=== PATIENT | female | born 1985 | race Caucasian/White ===

== ENCOUNTER → 2023-11-19 09:55 | Outpatient (CLI) | payer OTHER, MEDICAID, SELFPAY ==
--- NOTE | 2023-11-19 09:58 | DI.US.S_ITS ---
PROCEDURE: US PELVIC COMPLETE INDICATIONS: DUB TECHNIQUE: Real-time scanning was performed of the pelvic organs, with image documentation. Additional endovaginal scanning was necessary due to incomplete visualization of the adnexal and endometrial structures by transabdominal scanning. COMPARISON: None. FINDINGS: Uterus: Uterus is anteverted and normal in size at 7.2 x 3.8 x 4.8 cm. The myometrium is homogeneous. The endometrium measures 10 mm combined thickness. Ovaries: The right ovary measures 2.4 x 4.7 x 2.6 cm, with a calculated ovarian volume of 15.2 cc. The left ovary measures 3.3 x 3.4 x 1.4 cm, with a calculated ovarian volume of 8.5 cc. Complex cyst is present on the right measuring 2.2 x 0.9 x 1.6 cm. Other: No pathologic free abdominal or pelvic fluid. IMPRESSION: Complex cyst within the right ovary suggestive of collapsing hemorrhagic cysts. We strive to produce accurate, complete, and clear reports of imaging services. To assist us in improving patient care, this report was composed using standard report templates and voice recognition software. Therefore, it may contain abnormal punctuation, insertions and/or omissions. Occasional wrong-word or sound-alike substitutions may occur. Though we review the report and make efforts to correct it, we do recommend that the report be read carefully in proper context to recognize any text inaccuracies. Dictated by: Medina Gil M.D. on 11/19/2023 at 13:35 Approved by: Medina Gil M.D. on 11/19/2023 at 13:39
== END ==
PROVIDERS: PCP Specialist; Referring Provider Naturopath; Visit Provider Naturopath
DX: N91.2 Amenorrhea, unspecified (principal); N83.291 Other ovarian cyst, right side
CPT/HCPCS: 76830; 76856; 93975

== ENCOUNTER → 2024-02-02 12:36 | Outpatient (CLI) | payer OTHER, MEDICAID, SELFPAY ==
--- NOTE | 2024-02-02 12:37 | DI.US.S_ITS ---
PROCEDURE: US PELVIC COMPLETE INDICATIONS: Unspecified ovarian cyst, unspecified side TECHNIQUE: Real-time scanning was performed of the pelvic organs, with image documentation. Additional endovaginal scanning was necessary due to incomplete visualization of the adnexal and endometrial structures by transabdominal scanning. COMPARISON: [facility], US, US PELVIC COMPLETE, 11/19/2023, 10:05. FINDINGS: Uterus: Uterus is anteverted and normal in size at 7.2 x 5.0 x 3.5 cm. The myometrium is homogeneous. The endometrium measures two mm combined thickness. No myometrial or endometrial mass. Normal vascularity. Ovaries: The right ovary measures 3.1 x 1.7 x 1.9 cm, with a calculated ovarian volume of 5.2 cc. The left ovary measures 2.9 x 2.6 x 1.4 cm, with a calculated ovarian volume of 5.5 cc. The ovaries have a normal sonographic appearance. There is a decompressing fluid collection adjacent to the right ovary. Less than 12 follicles can be seen in each ovary. No adnexal masses are seen. Other: No pathologic free abdominal or pelvic fluid. IMPRESSION: Normal pelvic ultrasound with resolving right ovarian cysts. We strive to produce accurate, complete, and clear reports of imaging services. To assist us in improving patient care, this report was composed using standard report templates and voice recognition software. Therefore, it may contain abnormal punctuation, insertions and/or omissions. Occasional wrong-word or sound-alike substitutions may occur. Though we review the report and make efforts to correct it, we do recommend that the report be read carefully in proper context to recognize any text inaccuracies. Dictated by: Cata Delacruz M.D. on 02/02/2024 at 16:03 Approved by: Cata Delacruz M.D. on 02/02/2024 at 16:06
== END ==
PROVIDERS: PCP Specialist; Referring Provider Naturopath; Visit Provider Naturopath
DX: N83.201 Unspecified ovarian cyst, right side (principal)
CPT/HCPCS: 76856